=== PATIENT | male | born 1985 | race Two or more races ===

== ENCOUNTER 2021-11-14 20:38 | Inpatient (IN) | payer OTHER ==
[~2021-11-14] VITALS: Ht 200.7 cm; Wt 82.6 kg
--- NOTE | 2021-11-14 20:40 | NUR ---
Patient KELLY Alonzo came in due to altered mental status via gurney accompanied by paramedics and [employer] officers. Placed on room 5A. Patient is awake, doesn't like to answer questions to staff. Placed on monitor, VSS, HR 89, UC=587/76, O2 sat 96%. Addendum: 11/14/21 at 2101 by EDDIE Accompanied by 4 paramedics.
--- NOTE | 2021-11-14 20:42 | NUR ---
Patient is unkempt, malodorous, uncooperative, refusing to answer any questions to staff members.
--- NOTE | 2021-11-14 20:45 | NUR ---
LAVINIA Soto for MSE.
--- NOTE | 2021-11-14 20:59 | NUR ---
[employer] officers came in to evuluate and checked on patient.
--- NOTE | 2021-11-14 21:01 | NUR ---
[employer] officer stated, "Patient doesn't answer to any questions."
--- NOTE | 2021-11-14 21:15 | NUR ---
Sitter at bedside.
[2021-11-14 21:50] LABS: MEAN CORPUSCULAR HEMOGLOBIN 32.1 uug (23.8-33.4); MEAN CORPUSCULAR VOLUME 92.8 fL (73.0-96.2); PLATELET COUNT (AUTO) 269 K/uL (152-348)
--- NOTE | 2021-11-14 21:50 | NUR ---
Patient placed on 4 point restraints as per ordered. IV line inserted. Patient yelling, screaming, and spitting to staff members. Lab drawn.
--- NOTE | 2021-11-14 21:58 | NUR ---
In and out cath done. Urine sent to lab.
[2021-11-14 22:11] LABS: ACETAMINOPHEN 111.9 ug/mL (10-30); ALANINE AMINOTRANSFERASE 33 U/L (16-63); ALKALINE PHOSPHATASE 63 U/L (50-136); ASPARTATE AMINOTRANSFERASE 27 U/L (15-37); BILIRUBIN,DIRECT 0.4 mg/dL (0.0-0.2); BILIRUBIN,TOTAL 2.1 mg/dL (0.2-1.0); CARBON DIOXIDE 20 mmol/L (21-32); CHLORIDE 103 mmol/L (98-107); CREATININE 1.4 mg/dL (0.6-1.3); GLUCOSE 66 mg/dL (74-106); POTASSIUM 3.3 mmol/L (3.5-5.1); TOTAL PROTEIN, SERUM 7.7 g/dL (6.4-8.2); UREA NITROGEN, BLOOD 16 mg/dL (7-18)
[2021-11-14] MEDS ORDERED: IV NS 1000 ML 1,000 ML IV ONE (22:15)
[2021-11-14] MEDS ORDERED: ACETYLCYSTEINE IV ONE (22:30)
[2021-11-14] MEDS ORDERED: DEXTROSE 5% IV ONE (22:30)
[2021-11-14] MEDS ORDERED: ACETYLCYSTEINE IV 30 ML IV ONE (22:32)
--- NOTE | 2021-11-14 23:23 | NUR ---
Patient went back to sleep, sitter at bedside, on restraints, CMS intact. Will continue to monitor closely.
[2021-11-14 23:25] LABS: ETHANOL 28 MG/DL (0-0)
[2021-11-14 23:56] LABS: *BILIRUBIN,URIN 1+ (NEGATIVE); *BLOOD, URINE NEGATIVE (NEGATIVE); *CLARITY,URINE CLEAR (CLEAR); *COLOR,URINE YELLOW (YELLOW); *KETONES,URINE 1+ (NEGATIVE); *UROBILINOGEN,URINE 0.2 E.U./dl (NORMAL); LEUKOCYTE ESTERASE ,URINE NEGATIVE (NEGATIVE); NITRITE, URINE NEGATIVE (NEGATIVE); UGLUCOSE NEGATIVE (NEGATIVE)
[2021-11-15 00:02] LABS: *AMPHETAMINE, URINE POSITIVE (NEGATIVE); *CANNABINOID, URINE NEGATIVE (NEGATIVE); *COCCAINE, URINE NEGATIVE (NEGATIVE); *OPIATE, URINE NEGATIVE (NEGATIVE); *PHENCYCLIDINE SCREEN,URINE NEGATIVE (NEGATIVE)
[2021-11-15] MEDS ORDERED: POTASSIUM CHLORIDE 50 ML ONE (00:12)
[2021-11-15] MEDS ORDERED: IV NS 1000 ML 1,000 ML IV ONE (00:15)
[2021-11-15] MEDS: POTASSIUM CHLORIDE 50 ML IV SCH ×4 (00:16→03:19)
[2021-11-15] MEDS ORDERED: POTASSIUM CHLORIDE 150 ML ONE (00:18)
[2021-11-15] MEDS ORDERED: ACETYLCYSTEINE IV ONE (00:30)
[2021-11-15] MEDS ORDERED: DEXTROSE 5% IV ONE (00:30)
[2021-11-15] MEDS ORDERED: ACETYLCYSTEINE IV 30 ML IV ONE (00:47)
--- NOTE | 2021-11-15 00:50 | NUR ---
Patient is cooperative, able to answer questions and went back to sleep.
--- NOTE | 2021-11-15 01:00 | NUR ---
Patient placed on 3 point restraints, left wrist restraint released. CMS intact.
--- NOTE | 2021-11-15 01:55 | NUR ---
COVID specimen sent to lab.
--- NOTE | 2021-11-15 02:37 | NUR ---
DR Soto spoke with Dr Dominguez, hospitalist from [facility] who states "you can admit patient in your hospital."
--- NOTE | 2021-11-15 02:49 | NUR ---
Paged Epic panel, waiting for [employer] felt carbonizer to call back.
--- NOTE | 2021-11-15 03:15 | NUR ---
Patient will be placed on room 321.
--- NOTE | 2021-11-15 03:30 | NUR ---
Restraints removed. Patient is cooperative and asleep. Sitter at bedside.
--- NOTE | 2021-11-15 04:05 | NUR ---
Report given to WAQAS Monae.
[2021-11-15] MEDS ORDERED: REMEDY ESSENTIAL ZINC PASTE 113 GM TP PRN (04:45)
[2021-11-15] MEDS ORDERED: ACETAMINOPHEN 325 MG TABLET PO PRN (04:45)
[2021-11-15] MEDS ORDERED: MAGNESIUM HYDROXIDE 30 ML LIQUID UDC PO PRN (04:45)
[2021-11-15] MEDS ORDERED: ONDANSETRON 4 MG/2 ML VIAL IV PRN (04:45)
--- NOTE | 2021-11-15 05:00 | NUR ---
Patient transported to Room 321 via gurney accompanied by 2 staff members, without any incident. Belongings with patient. VSS. ARENAS.
--- NOTE | 2021-11-15 05:15 | NUR ---
Patient admitted to telemetry, rhythm is NSR with HR in the 70's BPM. Patient is sleeping but easily arousable. Able to conduct admission assessment and patient answers correctly but noted to be falling asleep and get confused when woken. Patient states he drank a bottle of pills, per patient not sure if it was Tylenol or Advil. States he also took methamphetamines and alcohol with this bottle of medication. When asked why, he initially answers " I dont want to talk about it". After further assessment patient admits to attempting suicide and this is not his first attempt. Patient states he lives in a "kind of lives in a sober living". Sitter is in place for safety and suicide ideation. Denies any other discomfort but states he had a scheduled hernia surgery at [facility] this week". Patient is lethargic and placed on NPO. Will endorse to day shift. Safety measures initiated.
[2021-11-15 06:13] VITALS: BP 115/82
[2021-11-15] MEDS: PANTOPRAZOLE SODIUM 40 MG TABLET.DR PO SCH (06:40)
[2021-11-15 07:30] VITALS: BP 112/82
--- NOTE | 2021-11-15 07:30 | NUR ---
Lethargic, easily aroused by name. Oriented to name and place. 1:1 Sitter at bedside. Denies suicidal ideation at this time
[2021-11-15] MEDS: POTASSIUM CHLORIDE 20 MEQ in IV NS 1000 ML 1,000 ML IV PRN (10:49)
[2021-11-15 11:01] VITALS: BP 109/79
--- NOTE | 2021-11-15 12:00 | NUR ---
Regular diet started, no aspiration noted.
--- NOTE | 2021-11-15 16:02 | NUR ---
Crisis team eval patient. cleared to discontinue 1:1 sitter; Recommendation for Psychiatrist and making line worker, ordered. Dr. Owens informed. making line worker Bessy seen patient.
[2021-11-15 16:09] VITALS: BP 110/70
--- NOTE | 2021-11-15 16:17 | NUR ---
Clinical Social Work Note: Pt is a 36 year old male who is alert and oriented x4. Pt appeared drowsy during the assessment. Pt stated, "I don't want to talk about it I get more depressed." when SW asked how the pt is doing. Pt was able to state that he consumed pills, though pt refused to provide further information. Pt appeared disheveled and unkempt. SW provided a list of substance use referrals for pt upon discharge. Pt stated his only contact is his father in law, Donaldo Trinh ([phone]). Pt did not provide further information and proceeded to close his eyes to sleep. BRODIE will continue to work with pt, family and MD to ensure a safe and proper discharge plan.
--- NOTE | 2021-11-15 18:19 | NUR ---
ATE DINNER. NOTED UNSTEADY WHEN ATTEMPTING TO GET UP. URINAL AT BED SIDE FOR USE. FREE FROM FALL AND INJURY. IVF INFUSING.
[2021-11-15 20:00] VITALS: BP 128/64
[2021-11-16] MEDS: POTASSIUM CHLORIDE 20 MEQ in IV NS 1000 ML 1,000 ML IV PRN ×2 (01:00→13:51)
[2021-11-16 04:00] VITALS: BP 120/73
--- NOTE | 2021-11-16 05:33 | NUR ---
Patient slept well. easily woken by his name. Able to recall all events. States he did not want to speak too much to healthcare social worker because he is still very tired. Patient slept most of shift. Continent of bladder, no BM. Urine is tea colored, fluids encouraged but patient drinks minimal. Iv site changed to right FA, infusing IV fluids without complication. Denies any suicidal ideation this shift. Safety measures initiated.
[2021-11-16] MEDS: PANTOPRAZOLE SODIUM 40 MG TABLET.DR PO SCH (06:18)
[2021-11-16 06:27] LABS: HEMATOCRIT 43.1 % (36.7-47.1); MEAN CORPUSCULAR HEMOGLOBIN 31.7 uug (23.8-33.4); MEAN CORPUSCULAR VOLUME 92.5 fL (73.0-96.2); PLATELET COUNT (AUTO) 199 K/uL (152-348)
[2021-11-16 07:05] LABS: BILIRUBIN,TOTAL 1.2 mg/dL (0.2-1.0); CREATININE 0.9 mg/dL (0.6-1.3); PHOSPHOROUS 2.5 mg/dL (2.5-4.9); POTASSIUM 3.9 mmol/L (3.5-5.1); TOTAL PROTEIN, SERUM 6.4 g/dL (6.4-8.2)
--- NOTE | 2021-11-16 11:38 | NUR ---
WOUND CARE CONSULT: PT DENIES NEED FOR SKIN ASSESSMENT AND SAYS HE HAS PSORIASIS. DEFER TO PMD. WILL SEE PRN.
[2021-11-16 12:07] VITALS: BP 112/77
[2021-11-16] MEDS: FLUOXETINE HCL 20 MG CAPSULE PO SCH (13:46)
--- NOTE | 2021-11-16 16:05 | NUR ---
Patient sleeping on and off during the shift . easily woken by his name. Able to recall all events. States he is still very tired. Continent of bladder, no BM. fluids encouraged but patient drinks minimal. Iv site changed to RFA intact, infusing IV fluids NS with KCL 20 EMQ at 80 ml hr, without complication. was seen by DR Owens with new order for Fluoxetine 20 mg for depression and anxiety. Denies any suicidal ideation at this time . Safety measures initiated.
[2021-11-16 16:21] VITALS: BP 115/76
[2021-11-16 20:00] VITALS: BP 118/71
--- NOTE | 2021-11-16 20:30 | NUR ---
RECEIVED PATIENT AWAKE IN BED. A/O X3. DENIES ANY PAIN OR DISCOMFORT. IVF INFUSING WELL TO RIGHT FA. VS WNL. PATIENT ASKED TO TAKE A SHOWER. CALLED OUT TO SAMANTHA LEO NP FOR OK TO SHOWER. ALL NEEDS ATTENDED. WILL CONTINUE TO MONITOR AND ASSESS.
[2021-11-16] MEDS: ACETAMINOPHEN 325 MG TABLET PO PRN (21:01)
--- NOTE | 2021-11-16 22:00 | NUR ---
RECEIVED CALL FROM ART AT [facility] IN REGARDS TO PATIENTS VOLUNTARY TRANSFER. RECEIVED INFORMATION FROM ART THAT PATIENT NEEDS TO BE COVID TESTED WITHIN 24 HOURS AND SEND FAX RESULTS TO [phone]. ALL NEEDS ATTENDED.
--- NOTE | 2021-11-17 | NUR ---
PATIENT REFUSED TO BE SWABBED FOR "DISCHARGE COVID TESTING."
[2021-11-17 04:00] VITALS: BP 98/59
[2021-11-17] MEDS: POTASSIUM CHLORIDE 20 MEQ in IV NS 1000 ML 1,000 ML IV PRN (04:49)
--- NOTE | 2021-11-17 05:30 | NUR ---
PATIENT AWAKE IN BED. DENIES PAIN OR DISCOMFORT. PATIENT INFORMED OF IMPORTANCE OF COVID TESTING FOR DISCHARGE. PATIENT VERBALIZED UNDERSTANDING AND WAS COOPERATIVE WITH SWABBING. COVID TEST SENT TO LAB. WAITING FOR RESULT.
[2021-11-17] MEDS: PANTOPRAZOLE SODIUM 40 MG TABLET.DR PO SCH (06:15)
--- NOTE | 2021-11-17 06:44 | NUR ---
COVID RESULT FAXED TO ART AT [facility] ORDERED.
[2021-11-17] MEDS: ACETAMINOPHEN 325 MG TABLET PO PRN (09:45)
[2021-11-17 12:00] VITALS: BP 124/66
[2021-11-17] MEDS: FLUOXETINE HCL 20 MG CAPSULE PO SCH (13:49)
--- NOTE | 2021-11-17 14:50 | NUR ---
patient walked to station stating " i want to leave." asked patient to return to room. Explained to patient risks and benefits of leaving against medical advice, per patient " i thought it over and i want to leave." AMA form signed. Dr. Sousa informed.
--- NOTE | 2021-11-17 15:00 | NUR ---
removed patient iv site, no bleeding noted. name band removed. patient assisted downstairs upon leaving patient with v/s wnl.
[2021-11-17 16:00] VITALS: BP 106/84
== END 2021-11-17 15:00 | disposition left against medical advice (07) | DRG 817 ==
LOC: ER 20:42 → EDBD 20:42 → TELE3 11-15 04:44 → MEDSURG3 11-15 08:19
PROVIDERS: ADMIT Internal Medicine; ATTEND Internal Medicine
DX: T39.1X2A Poisoning by 4-Aminophenol derivatives, intentional self-harm, initial encounter (principal); N17.0 Acute kidney failure with tubular necrosis; G92.8 Other toxic encephalopathy; Y92.89 Other specified places as the place of occurrence of the external cause; E87.6 Hypokalemia; F15.10 Other stimulant abuse, uncomplicated; Z78.1 Physical restraint status; E16.2 Hypoglycemia, unspecified; F32.9 Major depressive disorder, single episode, unspecified; F17.210 Nicotine dependence, cigarettes, uncomplicated; T43.622A Poisoning by amphetamines, intentional self-harm, initial encounter; Z72.89 Other problems related to lifestyle; F19.10 Other psychoactive substance abuse, uncomplicated; F10.10 Alcohol abuse, uncomplicated; Y90.1 Blood alcohol level of 20-39 mg/100 ml
CPT/HCPCS: 36415; 71045; 83735; 84100; 85025; 93005; A4663; C1758; G0378; G0480; J0132; J3480; J7040; J7060